=== PATIENT | male | born 1975 | race American Indian/Alaskan Native ===

== ENCOUNTER 2016-06-08 13:30 | Emergency (ER) | payer OTHER ==
[2016-06-08] MEDS ORDERED: KETOROLAC 30 MG/1 ML VIAL IVP ONE (13:42)
[2016-06-08] MEDS ORDERED: ONDANSETRON 4 MG/2 ML VIAL IVP ONE (13:42)
[2016-06-08] MEDS: NITROGLYCERIN 0.4 MG SL TAB (BOTTLE OF 3) SL ONE ×2 (13:45→13:50)
[2016-06-08 13:47] VITALS: RESP 12; TEMP 98
[2016-06-08] MEDS ORDERED: Sodium Chloride 0.9% 1,000 ML PRIMARY IV ONE (13:47)
[2016-06-08 13:48] LABS: BASOPHILS # (AUTO) 0.04 10*3/UL; BASOPHILS % (AUTO) 0.6 % (0-1); EOSINOPHILS % (AUTO) 1.7 % (0-8); HEMATOCRIT 46.1 % (42.0-52.0); HEMOGLOBIN 16.3 g/dL (14.0-18.0); IMM GRAN % (AUTO) 0.1 % (0-5); IMM GRAN# (AUTO) 0.01 10*3/UL; LYMPHOCYTES # (AUTO) 1.67 10*3/uL; LYMPHOCYTES % (AUTO) 23.3 % (10-50); MEAN CORPUSCULAR HEMOGLOBIN 29.8 PG (27-31); MEAN CORPUSCULAR HGB CONC 35.4 g/dL (33-37); MONOCYTES % (AUTO) 5.6 % (5-15); NEUTROPHILS # (AUTO) 4.94 10*3/UL; NEUTROPHILS % (AUTO) 68.7 % (50-80); RDW COEFFICIENT OF VARIATION 12.8 % (11.5-14.5); RED BLOOD COUNT 5.47 10^6/uL (4.70-6.10); WHITE BLOOD COUNT 7.18 10^3/uL (4.8-10.8)
--- NOTE | 2016-06-08 13:48 | PDOC ---
Chest Pain HPI - General Chief Complaint: Chest Pain Stated Complaint: chest pain Date Seen by Provider: 06/08/16 Time Seen by Provider: 13:43 Source: Patient Exam Limitations: POSITIVE: No limitations Treatment Prior to Arrival: REPORTS: None Nurse's Notes Reviewed & Considered: Yes - History of Present Illness Initial Comments: Patient comes in today with chief complaint of chest pain. She has had intermittent chest pain for 3 months. Over the last week it has been fairly constant. Yesterday it seemed to increase and he chose to come in today for further evaluation. He is complaining of shortness of breath that is associated with deep respirations. His chest pain is described as pressure and sharp under the left sternum without radiation. He denies any cough. Pain is better when he presses on his left anterior chest wall. He denies any fever chills sweats, nausea vomiting or diarrhea, hematuria or dysuria, rashes, no headache, no swelling of his feet or legs. Presently he rates his pain as a 5 out of 10. Body Location Affected: REPORTS: Chest Timing: REPORTS: Intermittent Duration: Unknown Severity: Moderate Context: REPORTS: Rest (He notices his chest pain while at rest), Exertion (He asked that his chest pain seems to improve because his mind is not occupied by the pain when he is working.) Quality: REPORTS: "Pain", Pressure Radiation: REPORTS: None Associated Symptoms: REPORTS: Shortness of Breath Modifying Factors: improves with: Exertion (Exertion seems to improve his pain.) Similar Symptoms Previously: Yes Recently seen/treated/hospitalized: No Any Prior Injuries Related to Current Complaint?: No - Patient Home Medications Home Medications: Home Medications Aspirin 650 mg PO PRN PRN 06/08/16 - Patient Allergies Allergies/Adverse Reactions: Allergies Allergy/AdvReac Type Severity Reaction Status Date / Time No Known Allergies Allergy Verified 06/08/16 13:38 Past Medical History - heen HEENT History: Denies History Cardiovascular History: Denies History Respiratory History: Denies History Gastrointestinal History: Denies History Genitourinary History: Denies History Endocrine History: Denies History Musculoskeletal History: Denies History Prosthesis or Implant: No Neurological History: Denies History Blood Disorders: Denies History Psychiatric History: Denies History History of Sexually Transmitted Diseases: No Cancer History: Denies History History of MDRO: No History of Other Communicable Diseases: No Alcohol Use: Occasionally Substance Use Type: None Previous Surgical History: No Anesthesia Reactions: No Malignant Hyperthermia: No Significant Family History: Diabetes ROS - Limitations ROS Limitations: No Limitations Constitution: REPORTS: Denies Symptoms Cardiovascular: REPORTS: Chest Pain Respiratory: REPORTS: Hurts To Breathe, Shortness Of Breath Neurological: REPORTS: Denies Neuro Symptoms Gastrointestinal: REPORTS: Denies GI Symptoms Endocrine: REPORTS: Denies Symptoms Musculoskeletal: REPORTS: Denies MS Symptoms Genitourinary: REPORTS: Denies Symptoms Eyes: REPORTS: Denies Symptoms ENT: REPORTS: Denies Symptoms Skin: REPORTS: Denies Skin Symptoms Lympathic: REPORTS: Denies Lympathic Symptoms Immunologic: POSITIVE: Denies Symptoms Psychiatric: POSITIVE: Denies Psych Symptoms Chest Pain PE - General Appearance General Appearance: REPORTS: Alert, Cooperative, No Acute Distress, No Evidence of Trauma - HEENT HEENT: POSITIVE: Head Inspection Nml, Eyes Inspection Nml, Ears Inspection Nml, Nose Inspection Nml, PERRL, EOMI - Neck Neck: REPORTS: Normal Inspection - Respiratory Respiratory: REPORTS: No Respiratory Distress, Breath Sounds Normal, Chest Non- Tender - Cardiovascular Cardiovascular: REPORTS: Regular Rate and Rhythm, Heart Sounds Normal - Abdomen Abdomen: Soft: (All Quadrants), Normal Bowel Sounds: (All Quadrants), Denies Tenderness: (All Quadrants) - Skin Skin: REPORTS: Intact, Normal For Race, Warm, Dry - Extremities Extremity: Non-Tender: (All Extremities), Normal ROM: (All Extremities), Normal Inspection: (All Extremities) - Neurological / Psychological Neurological: POSITIVE: Affect Apporpriate, Oriented X3 Chest Pain Progress - Results Reviewed by me Xrays/CTs/US Reviewed by me: Yes Discussed with Radiologist: No Lab Results Reviewed: Yes Lab Results:: Laboratory Results 06/08/16 Range/Units 13:45 WBC 7.18 (4.8-10.8) 10^3/uL RBC 5.47 (4.70-6.10) 10^6/uL Hgb 16.3 (14.0-18.0) g/dL Hct 46.1 (42.0-52.0) % MCV 84.3 (80-90) FL MCH 29.8 (27-31) PG MCHC 35.4 (33-37) g/dL RDW Std Deviation 39.1 (39-50) fL RDW Coeff of Janie 12.8 (11.5-14.5) % Plt Count 242 (140-350) 10*3/uL MPV 10.0 (7.4-12.2) FL Immature Gran % (Auto) 0.1 (0-5) % Neut % (Auto) 68.7 (50-80) % Lymph % (Auto) 23.3 (10-50) % [place] % (Auto) 5.6 (5-15) % Eos % (Auto) 1.7 (0-8) % Baso % (Auto) 0.6 (0-1) % Immature Gran # (Auto) 0.01 10*3/UL Neut # (Auto) 4.94 10*3/UL Lymph # (Auto) 1.67 10*3/uL [place] # (Auto) 0.40 (0.3-0.8) 10*3/UL Eos # (Auto) 0.12 10*3/UL Baso # (Auto) 0.04 10*3/UL WBC Morphology Comment Normal morphology (NORM) Plt Morphology Comment Normal morphology (NORM) RBC Morph Comment Normal morphology (NORM) ESR 2 (0-15) MM/HR D-Dimer < 0.19 (0.00-0.59) mg/L Sodium 141 (135-145) meq/L Potassium 3.9 (3.8-5.2) meq/L Chloride 104 (98-112) meq/L Carbon Dioxide 24 (23-33) meq/L Anion Gap 13 (5-20) BUN 12 (7-22) mg/dL Creatinine 0.8 (0.70-1.50) mg/dL Estimated GFR > 60 (>60 ml/min/1.73m(2)) BUN/Creatinine Ratio 15.00 (6-20) Glucose 112 H (78-110) mg/dL Calculated Osmolality 292.0 (267-292) mOsm/kg Calcium 9.7 (8.7-10.7) mg/dL Magnesium 2.1 (1.6-2.4) mg/dL Total Bilirubin 0.6 (0.3-1.2) mg/dL AST 24 (21-57) IU/L ALT 17 L (21-72) IU/L Alkaline Phosphatase 108 (38-126) IU/L Troponin I < 0.012 (< 0.040) ng/mL C-Reactive Protein 0.5 (0.0-0.9) mg/dL Total Protein 8.2 H (6.1-8.0) g/dL Albumin 4.9 H (3.5-4.8) g/dL Globulin 3.3 (2.50-4.10) g/dL Albumin/Globulin Ratio 1.40 (1.3-2.0) mg/g TSH 0.648 (0.2700-4.2000) uIU/mL EKG Interpretation:: POSITIVE: Normal Sinus Rhythm - Patient's Progress Pain Medication Addressed: POSITIVE: Yes Re-Examine Time: 15:10 Status: POSITIVE: Improved MDM / ED Course: Patient was examined, an IV started, blood drawn and sent to the lab for studies , chest x-ray was obtained, EKG was obtained. ER course, patient received sublingual nitroglycerin 2 which resulted in resolution of his pain. He also received normal saline at TKO rate, Toradol, and Zofran. Findings: Troponin was normal, d-dimer was normal, chest x-ray as read by me shows no acute cardiopulmonary decompensation, CBC is unremarkable, competent metabolic panel is unremarkable, magnesium is normal, inflammatory markers which include CRP and ESR are normal. TSH is normal. Assessment: Chest pain with normal cardiac enzymes and EKG along with a negative d-dimer. 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 Plan: Discharge home, Tylenol and ibuprofen as needed, heat and cold packs. Follow up with his primary care physician. Quality Measure Initiative: CP/AMI: POSITIVE: EKG, ASA Quality Measure Initiative: CAP: POSITIVE: CXR or CT - Consult Counseled: POSITIVE: Patient, Family, RE: Lab Results, RE: Radiology Results, RE : DX, RE: Need for F/U Patient Care Time - Estimated PCT Patient Care Time (In Minutes): 30 Vital Signs - Recent Vital Signs Vital Signs: Vital Signs (Last 8 hours) Temp Pulse Resp BP Pulse Ox 06/08/16 13:40 98 F 71 12 129/106 97 - VS Reviewed Vital Signs Reviewed: Yes Discharge Clinical Impression: Chest pain Discharge Disposition: Discharged to Home Condition: Good Patient Instructions Given at Discharge: Chest Pain (ED)
[2016-06-08 13:58] LABS: ASPARTATE AMINO TRANSFERASE 24 IU/L (21-57); BILIRUBIN,TOTAL 0.6 mg/dL (0.3-1.2); BLOOD UREA NITROGEN 12 mg/dL (7-22); C-REACTIVE PROTEIN 0.5 mg/dL (0.0-0.9); CALCIUM 9.7 mg/dL (8.7-10.7); CHLORIDE 104 meq/L (98-112); CREATININE 0.8 mg/dL (0.70-1.50); EST GLOMERULAR FILTRATION > 60 (>60 ml/min/1.73m(2)); GLUCOSE 112 mg/dL (78-110); MAGNESIUM 2.1 mg/dL (1.6-2.4); POTASSIUM 3.9 meq/L (3.8-5.2); SODIUM 141 meq/L (135-145); TOTAL PROTEIN 8.2 g/dL (6.1-8.0)
[2016-06-08 13:59] LABS: PLATELET MORPHOLOGY COMMENT NORMAL MORPHOLOGY (NORM)
[2016-06-08 14:45] LABS: ERYTHROCYTE SEDIMENTATION RATE 2 MM/HR (0-15)
[2016-06-08] MEDS ORDERED: Sodium Chloride 0.9% 1,000 ML ONE (16:32)
--- NOTE | 2016-06-08 17:34 | EKG ---
[address] [address] Measurements Intervals [place] Rate: 68 P: 72 NH: 165 QRS: 57 QRSD: 93 T: 58 QT: 371 QTc: 388 Interpretive Statements SINUS RHYTHM No previous ECG available for comparison Electronically Signed On 06-08-16 20:24:08 [facility] by Phil Cao [email or web address]
--- NOTE | 2016-06-08 19:20 | DI ---
AP CHEST X-RAY, 06/08/2016 1:42 PM : Clinical History: Chest pain. Previous Exam: None at this facility. There is no acute soft tissue or bony abnormality. Heart size is normal. The lungs are markedly hyper inflated in this patient may have either underlying emphysema or chronic asthma. There is no acute in filtrate or effusion. Mediastinal structures are normal. There are no pulmonary nodules. Reading: Normal chest x-ray. The lungs are markedly hyperinflated.
== END 2016-06-08 15:15 | disposition home or self-care (01) ==
LOC: ER 13:30
DX: R07.9 Chest pain, unspecified (principal); R06.02 Shortness of breath
CPT/HCPCS: 71010; 80053; 83735; 84443; 84484; 85025; 85379; 85652; 86140; 93005; 93010; 96374; 96375; 99284 ×2; J1885; J2405; J7030